=== PATIENT | female | born 1945 | race Caucasian/White ===

== ENCOUNTER 2021-06-23 12:23 | Outpatient (CLI) | payer MEDICARE, SELFPAY ==
--- NOTE | 2021-06-23 12:26 | VDLE_ITS ---
Reason For Study: pain and swelling, varicose veins RIGHT CFV is compressible, spontaneous, phasic, competent and demonstrates normal augmentation. FV is compressible, spontaneous, phasic, competent and demonstrates normal augmentation. POP V is compressible, spontaneous, phasic, competent and demonstrates normal augmentation. T/P Trunk is compressible. PTV is compressible. RT PerV is compressible. SFJ is competent and measures .51 cm. GSV proximal thigh measures .13 x .15 cm. GSV at knee measures .22 x .22 cm. GSV above knee is competent. GSV below knee is INCOMPETENT for greater than 0.5 seconds. SSV proximal calf is competent and measures .22 x .23 cm. ASV from proximal thigh to mid calf is incompetent for greater than .5 seconds. ASV is partially compressible below the knee. ASV has a diameter of .47 cm. Procedure This is a venous duplex using B-mode, color flow and spectral Doppler. Exam performed in department. The exam was diagnostic. A preliminary report was called and/or faxed to Dr. Rodas. VL/Venous Duplex US, Unilateral Interpretation Summary Right leg with no DVT noted. Right greater saphenous below the knee with reflux noted. Right ASV measuring 4.7 mm with reflux noted from the proximal thigh and a branch varicos ity. Ordering Physician: Zuhair Rodas Performed By: Ameya Albarado RVT
== END 2021-06-23 23:59 | disposition short-term general hospital (02) ==
LOC: CVS 12:24
PROVIDERS: PCP Student in an Organized Health Care Education/Training Program; Referring Provider Surgery Vascular Surgery; Visit Provider Surgery Vascular Surgery
DX: M79.89 Other specified soft tissue disorders (principal); M79.606 Pain in leg, unspecified; I83.893 Varicose veins of bilateral lower extremities with other complications
CPT/HCPCS: 93971

== ENCOUNTER → 2021-11-29 | Outpatient (CLI) | payer MEDICARE, SELFPAY ==
--- NOTE | 2021-11-29 13:06 | CT_ITS ---
INDICATION: MONITORING LUNG NODULES/PE EXAMINATION: CT CHEST WITH CONTRAST - CT Chest W/ Contrast Injection TECHNIQUE: Helically acquired images were obtained of the chest following IV contrast. A radiation dose optimization technique was used for this scan. IV Contrast dosage and agent: 100 cc [id number] COMPARISON: CT therapy planning from 03/31/2021 FINDINGS: Lungs/pleura: The central airways are patent. There are a few stable small nodules, the largest which measures up to 5 mm in the right middle lobe. For example: * 5 mm in the right middle lobe (4:67). * 4 mm in the right upper lobe (4:61). * 4 mm in the left upper lobe (4.56). No new or enlarging mass. A pleural effusion or pneumothorax. Mediastinum: Heart size is normal. No pericardial effusion. No mass or lymphadenopathy. Vasculature: Pulmonary arteries are normal course and caliber with no large central filling defects. Thoracic aorta is normal course and caliber. Mild atherosclerotic calcifications in the aorta and coronary vessels. Bones/soft tissues: No acute fracture or subluxation. No destructive osseous lesions. 2.9 x 2.7 cm mass in the partially visualized right breast, previously 5.5 x 5.1 cm. Surgical marker adjacent to the right breast. There appears to be thickening of the right breast superficial soft tissues. Visualized upper abdomen: Stable left upper pole renal cyst. Stable right upper pole renal calcification. No acute findings. CT/Chest WITH Contrast IMPRESSION: 1. Interval decrease in size of mass in the partially visualized right breast from 03/31/2021. Redemonstration of superficial skin thickening along the right breast. 2. Stable small pulmonary nodules measuring up to 5 mm. 3. No new masses or metastatic disease. Electronically Signed: Cuba Lynch, at 14:46 EDT ,
[2021-11-29 13:25] LABS: EGFR FINGERSTICK > 60.0000 mL/min (>60)
== END | disposition home or self-care (01) ==
LOC: CT 13:04
PROVIDERS: PCP Student in an Organized Health Care Education/Training Program; Referring Provider Internal Medicine Medical Oncology; Visit Provider Internal Medicine Medical Oncology
DX: R91.8 Other nonspecific abnormal finding of lung field (principal); I74.9 Embolism and thrombosis of unspecified artery; C50.411 Malignant neoplasm of upper-outer quadrant of right female breast; Z17.0 Estrogen receptor positive status [ER+]
CPT/HCPCS: 71260; Q9967

== ENCOUNTER → 2025-05-28 | Outpatient (CLI) | payer MEDICARE, SELFPAY ==
--- NOTE | 2025-05-28 12:30 | CT_ITS ---
PROCEDURE: CHEST WITH CONTRAST 05/28/2025 REASON FOR EXAM: LUNG NODULE TECHNIQUE: Procedure Code: CTCHW Modality: CT Procedure: CHEST WITH CONTRAST CT chest was performed with IV contrast. Multiplanar reformats were generated. CONTRAST: Isovue-300 VOLUME: 57 mL One or more dose reduction techniques were used (e.g., Automated exposure control, adjustment of the mA and/or kV according to patient size, use of iterative reconstruction technique). RADIATION DOSE SUMMARY: CTDlvol: 9.97+ 17.05 mGy DLP: 588.52 mGycm COMPARISON: 11/29/2021 FINDINGS: Mild motion limitation. Heart/pericardium: Trace aortic annular calcification Aorta: Mild atherosclerosis Pulmonary arteries: Mildly enlarged central pulmonary arteries may suggest pulmonary arterial hypertension.. Lymph nodes: Unremarkable. Lungs/pleura: Similar 6 x 6 mm RIGHT middle lobe nodule abutting the fissure (series 4 image 68). Similar 3 mm RIGHT upper lobe nodule (image 62). Grossly similar 5 x 4 mm LEFT upper lobe nodule allowing for motion (image 60). Several similar and smaller nodules annotated on series 4 similar allowing for motion on both exams. Airways: Unremarkable. Chest wall: Subcentimeter RIGHT lobe thyroid nodule suspected. Operative changes RIGHT breast partially imaged not well evaluated. Upper abdomen: [id number] hiatal hernia. Bulky RIGHT renal parenchymal calculus. Partially imaged bulky LEFT renal collecting system calculus. No hydronephrosis within the [id number]. RIGHT renal cyst. Additional subcentimeter hypodensity too small to characterize, presumed cyst. Atherosclerosis.. Musculoskeletal: Demineralization. Mild degenerative findings. Thoracolumbar levoscoliosis.. CT/Chest WITH Contrast IMPRESSION: 1. No definite change in the size of numerous subcentimeter pulmonary nodules s kg 11/29/2021. 2. Recommend dedicated mammographic follow-up of RIGHT breast findings which ar e partially imaged and not well evaluated by CT. 3. Additional description as above. Incidental Finding Alert: As above. Management of incidental finding should fo llow the [employer] (A[employer]) Incidental Findings Committee recommendations. Reading Location: [id number]
== END | disposition home or self-care (01) ==
LOC: CT 12:29
PROVIDERS: PCP Student in an Organized Health Care Education/Training Program; Referring Provider Internal Medicine Medical Oncology; Visit Provider Internal Medicine Medical Oncology
DX: R91.8 Other nonspecific abnormal finding of lung field (principal); C50.411 Malignant neoplasm of upper-outer quadrant of right female breast; Z17.0 Estrogen receptor positive status [ER+]
CPT/HCPCS: 71260; Q9967